=== PATIENT | female | born 1935 | race Caucasian/White ===

== ENCOUNTER 2021-07-24 09:17 | Emergency (ER) | payer MEDICARE ==
--- OUTSIDE RECORDS SUMMARY | 2021-07-24 09:21 | XMS REPORT | Continuity of Care Document ---
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 [id number] 14:24:00 Test Item Value Reference Range Interpretation Comments WHITE BLOOD CELL (test code = 6.9 K/mm3 4.5-11.0 N WBC) RED BLOOD CELL (test code = 4.32 M/mm3 3.80-5.20 N RBC) HEMOGLOBIN (test code = HGB) 13.9 gm/dL 12.0-16.0 N HEMATOCRIT (test code = HCT) 43.3 % 36.0-48.0 N MEAN CELL VOLUME (test code = 100.2 UM3 82.0-99.0 H MCV) MEAN CELL HGB (test code = MCH) 32.2 UUG 25.5-32.5 N MEAN CELL HGB CONCETRATION 32.1 gm/dL 29.0-35.5 N (test code = MCHC) RED CELL DISTRIBUTION WIDTH 11.9 % 11.5-15.0 N (test code = RDW) RED CELL DISTRIBUTION WIDTH SD 44.6 fL 34.8-50.2 N (test code = RDW-SD) PLATELET COUNT (test code = 255 K/mm3 150-400 N PLT) MEAN PLATELET VOLUME (test code 9.6 fl 7.4-10.4 N = MPV) NEUTROPHIL % (test code = NT%) 75.1 % 49.0-76.0 N IMMATURE GRANULOCYTE % (test 0.1 % 0.0-0.4 N code = IG%) LYMPHOCYTE % (test code = LY%) 16.7 % 23.0-38.0 L MONOCYTE % (test code = MO%) 6.4 % 1.0-10.0 N EOSINOPHIL % (test code = EO%) 1.3 % 1.0-5.0 N BASOPHIL % (test code = BA%) 0.4 % 0.0-1.0 N NEUTROPHIL # (test code = NT#) 5.2 K/mm3 2.4-6.3 N IMMATURE GRANULOCYTE # (test 0.01 x10 3/uL 0.00-0.07 N code = IG#) LYMPHOCYTE # (test code = LY#) 1.2 K/mm3 1.2-4.0 N MONOCYTE # (test code = MO#) 0.4 K/mm3 0.0-0.6 N EOSINOPHIL # (test code = EO#) 0.1 K/MM3 0.0-0.7 N BASOPHIL # (test code = BA#) 0.0 K/mm3 0.0-0.2 N
[2021-07-24 10:11] LABS: Hematocrit 41.6 % (36.0-45.0); Lymphocytes % 10.3 % (15.3-44.8); MPV 7.4 fL (7.6-11.3); RBC Red Blood Cell Count 4.42 M/uL (3.86-4.86)
[2021-07-24 10:31] LABS: Albumin 3.8 g/dL (3.4-5.0); Bilirubin Total 0.4 mg/dL (0.2-1.0); Potassium 3.4 mmol/L (3.5-5.1); Protein, Total 7.8 g/dL (6.4-8.2)
[2021-07-24] MEDS ORDERED: NA CHLORIDE 0.9% 500 ML ONE (10:41)
--- NOTE | 2021-07-24 12:30 | EDPHYS ---
Physician Documentation [facility] Name: Melonie Akers Age: 85 yrs Sex: Female : 1935 Arrival Date: 07/24/2021 Time: 09:19 Bed 9 Private MD: Rowdy Bai E ED Physician Nikolay Oliveira HPI: 07/24 15:26 This 85 yrs old Female presents to ER via Ambulatory with complaints of Diarrhea, kdr Weakness. 15:26 Patient states that about 3 days ago she was having diarrhea. Additionally she has not kdr had much of an appetite for the last week or so. She states that she can try to eat but then gets slightly nauseated when she does. She stated that she had some food last night but that she felt as if it just sat on her stomach all night long.. Onset: The symptoms/episode began/occurred gradually, 1 week(s) ago. Severity of symptoms: At their worst the symptoms were mild in the emergency department the symptoms are unchanged. The patient has not experienced similar symptoms in the past, but family has similar symptoms. The patient has not recently seen a physician. Historical: - Allergies: 09:34 No Known Allergies; aa5 - Home Meds: 09:34 lisinopril 10 mg Oral tab once daily [Active]; pravastatin 20 mg oral tab once daily aa5 [Active]; citalopram 10 mg tab once daily [Active]; alendronate 70 mg oral tab once wkly [Active]; - PMHx: 09:34 Hypertensive disorder; Hypercholesterolemia; Osteoporosis; aa5 - Immunization history:: Adult Immunizations unknown. - Social history:: Smoking status: Patient denies any tobacco usage or history of. ROS: 15:26 Constitutional: Negative for fever, chills, and weight loss, Eyes: Negative for injury, kdr pain, redness, and discharge, Neck: Negative for injury, pain, and swelling, Cardiovascular: Negative for chest pain, palpitations, and edema, Respiratory: Negative for shortness of breath, cough, wheezing, and pleuritic chest pain, Back: Negative for injury and pain, : Negative for injury, bleeding, discharge, and swelling, MS/Extremity: Negative for injury and deformity, Skin: Negative for injury, rash, and discoloration, Neuro: Negative for headache, weakness, numbness, tingling, and seizure activity. Psych: Negative for depression, anxiety, suicide ideation, homicidal ideation, and hallucinations, Allergy/Immunology: Negative for hives, rash, and allergies, Endocrine: Negative for neck swelling, polydipsia, polyuria, polyphagia, and marked weight changes, Hematologic/Lymphatic: Negative for swollen nodes, abnormal bleeding, and unusual bruising. 15:26 Abdomen/GI: Positive for diarrhea. Exam: 15:59 Constitutional: This is a well developed, well nourished patient who is awake, alert, kdr and in no acute distress. Head/Face: Normocephalic, atraumatic. Eyes: Pupils equal round and reactive to light, extra-ocular motions intact. Lids and lashes normal. Conjunctiva and sclera are non-icteric and not injected. Cornea within normal limits. Periorbital areas with no swelling, redness, or edema. Neck: Trachea midline, no thyromegaly or masses palpated, and no cervical lymphadenopathy. Supple, full range of motion without nuchal rigidity, or vertebral point tenderness. No Meningismus. Chest/axilla: Normal chest wall appearance and motion. Nontender with no deformity. No lesions are appreciated. Cardiovascular: Regular rate and rhythm with a normal S1 and S2. No gallops, murmurs, or rubs. Normal PMI, no JVD. No pulse deficits. Respiratory: Lungs have equal breath sounds bilaterally, clear to auscultation and percussion. No rales, rhonchi or wheezes noted. No increased work of breathing, no retractions or nasal flaring. Abdomen/GI: Soft, non-tender, with normal bowel sounds. No distension or tympany. No guarding or rebound. No evidence of tenderness throughout. Back: No spinal tenderness. No costovertebral tenderness. Full range of motion. Skin: Warm, dry with normal turgor. Normal color with no rashes, no lesions, and no evidence of cellulitis. MS/ Extremity: Pulses equal, no cyanosis. Neurovascular intact. Full, normal range of motion. Neuro: Awake and alert, GCS 15, oriented to person, place, time, and situation. Cranial nerves II-XII grossly intact. Motor strength 5/5 in all extremities. Sensory grossly intact. Cerebellar exam normal. Normal gait. Psych: Awake, alert, with orientation to person, place and time. Behavior, mood, and affect are within normal limits. Vital Signs: 09:33 BP 157 / 95; Pulse 98; Resp 16 S; Temp 98.7(TE); Pulse Ox 97% on R/A; Weight 64.86 kg aa5 (R); Height 5 ft. 1 in. (154.94 cm) (R); 09:33 Body Mass Index 27.02 (64.86 kg, 154.94 cm) aa5 MDM: 12:29 Patient medically screened. kdr 15:59 Data reviewed: vital signs, nurses notes, lab test result(s). Counseling: I had a kdr detailed discussion with the patient and/or guardian regarding: the historical points, exam findings, and any diagnostic results supporting the discharge/admit diagnosis, lab results, the need for outpatient follow up. 07/24 09:45 Order name: CBC with Diff; Complete Time: 11:54 kdr 07/24 09:45 Order name: CMP; Complete Time: 11:54 kdr 07/24 09:45 Order name: Lipase; Complete Time: 11:54 kdr 07/24 09:45 Order name: IV Saline Lock; Complete Time: 09:56 kdr 07/24 09:45 Order name: Labs collected and sent; Complete Time: 09:56 kdr Administered Medications: 10:38 Drug: NS 0.9% 500 ml Route: IV; Rate: bolus; Site: right wrist; iw 11:33 Follow up: IV Status: Completed infusion iw Disposition Summary: 07/24/21 12:29 Discharge Ordered Location: Home kdr Problem: new kdr Symptoms: have improved kdr Condition: Stable kdr Diagnosis - Weakness kdr - Poor/diminished appetite kdr Followup: kdr - With: Rowdy Bai MD - When: 48 Hours - Reason: If symptoms return, Further diagnostic work-up, Recheck today's complaints, Continuance of care, Re-evaluation by your physician Discharge Instructions: - Discharge Summary Sheet kdr - Weakness, [id number] kdr - Healthy Eating kdr Forms: - Medication Reconciliation Form kdr - Thank You Letter kdr Signatures: Dispatcher [employer] Nikolay Gamble MD MD kdr Patti Garcia RN RN iw Veronica Villatoro RN RN aa5
--- NOTE | 2021-07-24 12:30 | ER ---
Nurse's Notes [facility] Name: Melonie Akers Age: 85 yrs Sex: Female : 1935 Arrival Date: 07/24/2021 Time: 09:19 Bed 9 Private MD: Rowdy Bai E Diagnosis: Weakness;Poor/diminished appetite Presentation: 07/24 09:33 Chief complaint: Patient states: "I had diarrhea for about 3 days and I haven't been aa able to really eat anything for the last few days because it makes me nauseated and it makes me feel like the food just sits right here (points to epigastric area)". 09:33 Acuity: MARGIE 3 aa 09:33 Method Of Arrival: Ambulatory [facility] 09:33 Coronavirus screen: diarrhea, nausea. Ebola Screen: No symptoms or risks identified at [facility] this time. Initial Sepsis Screen: Does the patient meet any 2 criteria? No. Patient's initial sepsis screen is negative. Does the patient have a suspected source of infection? No. Patient's initial sepsis screen is negative. Risk Assessment: Do you want to hurt yourself or someone else? Patient reports no desire to harm self or others. Onset of symptoms was July 2021. Historical: - Allergies: 09:34 No Known Allergies; aa5 - Home Meds: 09:34 lisinopril 10 mg Oral tab once daily [Active]; pravastatin 20 mg oral tab once daily aa5 [Active]; citalopram 10 mg tab once daily [Active]; alendronate 70 mg oral tab once wkly [Active]; - PMHx: 09:34 Hypertensive disorder; Hypercholesterolemia; Osteoporosis; aa5 - Immunization history:: Adult Immunizations unknown. - Social history:: Smoking status: Patient denies any tobacco usage or history of. Screenin:59 Abuse screen: Denies threats or abuse. Denies injuries from another. Nutritional iw screening: No deficits noted. Tuberculosis screening: No symptoms or risk factors identified. Fall Risk IV access (20 points). Assessment: 10:58 General: Appears in no apparent distress. Behavior is calm, cooperative. Pain: Denies iw pain. Neuro: Level of Consciousness is awake, alert, obeys commands, Oriented to person, place, time, situation. Respiratory: Respiratory effort is even, unlabored, Respiratory pattern is regular, symmetrical. GI: Abdomen is non-distended, Reports diarrhea. Derm: Skin is intact, is healthy with good turgor. Musculoskeletal: Range of motion: intact in all extremities. Vital Signs: 09:33 BP 157 / 95; Pulse 98; Resp 16 S; Temp 98.7(TE); Pulse Ox 97% on R/A; Weight 64.86 kg aa5 (R); Height 5 ft. 1 in. (154.94 cm) (R); 09:33 Body Mass Index 27.02 (64.86 kg, 154.94 cm) aa5 ED Course: 09:19 Patient arrived in ED. as 09:20 Nikolay Oliveira MD is Attending Physician. kdr 09:20 Rowdy Bai MD is Private Physician. as 09:33 Arm band placed on. aa5 09:34 Triage completed. aa5 09:56 Initial lab(s) drawn, by mo, sent to lab. Inserted saline lock: 20 gauge in right em1 forearm, using aseptic technique. Blood collected. 10:10 Patti Garcia, RN is Primary Nurse. iw 12:27 Rowdy Bai MD is Referral Physician. kdr 12:46 Patient has correct armband on for positive identification. iw 12:46 No provider procedures requiring assistance completed. IV discontinued, intact, iw bleeding controlled, No redness/swelling at site. Pressure dressing applied. Administered Medications: 10:38 Drug: NS 0.9% 500 ml Route: IV; Rate: bolus; Site: right wrist; iw 11:33 Follow up: IV Status: Completed infusion iw Medication: 12:46 VIS not applicable for this client. iw Outcome: 12:29 Discharge ordered by . kdr 12:46 Discharged to home ambulatory, with family. iw 12:46 Condition: good 12:46 Discharge instructions given to patient, Instructed on discharge instructions, follow up and referral plans. Demonstrated understanding of instructions, follow-up care. 12:46 Patient left the ED. iw Signatures: Nikolay Oliveira MD MD kdr Ban Ramírez as Patti Garcia, RN PRASHANT Stepan Ramírezic em1 Veronica Villatoro RN RN [facility]
[2021-07-24 12:57] VITALS: BP 157/95; TEMP 98.7; O2SAT 97
== END 2021-07-24 12:46 | disposition home or self-care (01) ==
LOC: ER 09:17
DX: R53.1 Weakness (principal); R63.0 Anorexia; R19.7 Diarrhea, unspecified; E78.00 Pure hypercholesterolemia, unspecified; I10 Essential (primary) hypertension; Z68.27 Body mass index [BMI] 27.0-27.9, adult
CPT/HCPCS: 85025; 36415; 83690; 80053; 96360; 99283; J7040

== ENCOUNTER 2024-02-10 09:10 | Emergency (ER) | payer MEDICARE ==
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
--- NOTE | 2024-02-10 10:04 | ER ---
Nurse's Notes [facility] Name: Melonie Akers Age: 88 yrs Sex: Female : 1935 Arrival Date: 02/10/2024 Time: 09:10 Bed IW1 Private MD: Diagnosis: Encounter for general adult medical examination without abnormal findings Presentation: 02/09 09:54 Chief complaint: Patient states: Sudden onset of fatigue that began at 1030. Pt reports ss she feels much better now, but wants to get it checked out to be sure she is ok. Coronavirus screen: Client denies travel out of the [place] in the last 14 days. Ebola Screen: Patient denies exposure to infectious person. Patient denies travel to an Ebola-affected area in the 21 days before illness onset. Initial Sepsis Screen: Does the patient meet any 2 criteria? No. Patient's initial sepsis screen is negative. Does the patient have a suspected source of infection? No. Patient's initial sepsis screen is negative. Risk Assessment: Do you want to hurt yourself or someone else? Patient reports no desire to harm self or others. Onset of symptoms was February 10, 2024. 09:54 Method Of Arrival: Ambulatory ss 09:54 Acuity: MARGIE 3 ss Historical: - Allergies: 09:57 No Known Allergies; ss - PMHx: 09:57 Hypercholesterolemia; Hypertensive disorder; Osteoporosis; ss - Immunization history:: Adult Immunizations up to date. - Infectious Disease History:: Denies. - Social history:: Smoking status: Patient denies any tobacco usage or history of. Screenin:23 [facility] ED Fall Risk Assessment (Adult) History of falling in the last 3 months, tm6 including since admission No falls in past 3 months (0 pts) Confusion or Disorientation No (0 pts) Intoxicated or Sedated No (0 pts) Impaired Gait No (0 pts) Mobility Assist Device Used No (0 pt) Altered Elimination No (0 pt) Score/Fall Risk Level 0 - 2 = Low Risk Oriented to surroundings, Maintained a safe environment, Educated pt \T\ family on fall prevention, incl call for assistance when getting out of bed. Abuse screen: Denies threats or abuse. Denies injuries from another. Nutritional screening: No deficits noted. Tuberculosis screening: No symptoms or risk factors identified. Assessment: 10:04 General: Appears in no apparent distress. comfortable, Behavior is calm, cooperative. ss General:. Pain: Denies pain. Neuro: Level of Consciousness is awake, alert, obeys commands, Oriented to person, place, time, situation. Neuro: Oriented to Franchise Manager are equal bilaterally Moves all extremities. Full function Gait is steady, Speech is normal, Facial symmetry appears normal, Pupils are PERRLA, Intact. Respiratory: Airway is patent Respiratory effort is even, unlabored, Respiratory pattern is regular, symmetrical, Denies cough, shortness of breath. GI: Patient currently denies diarrhea, nausea, vomiting. Derm: Skin is intact, is healthy with good turgor, Skin is dry, Skin is pink, warm \T\ dry. normal. 10:05 Reassessment: Pt reported sudden onset of fatigue after taking a shower, doing her hair ss and eating breakfast. Pt reports she had to lay there for a moment, but feels better now. Vital Signs: 09:54 BP 118 / 81; Pulse 93; Resp 16; Temp 97.8(O); Pulse Ox 100% on R/A; Weight 60.78 kg; ss Height 5 ft. 2 in. ; Pain 0/10; 09:54 Body Mass Index 24.51 (60.78 kg, 157.48 cm) ss 09:54 Pain Scale: Adult ss ED Course: 09:13 Patient arrived in ED. im 09:13 Mindy Lee PA-C is PHCP. sb4 09:13 Mitch Hughes MD is Attending Physician. sb4 09:57 Triage completed. ss 09:57 Arm band placed on right wrist. ss 10:04 Jamila Qiu, PRASHANT is Primary Nurse. ss 10:23 Patient has correct armband on for positive identification. Provided Education on: tm6 follow up with PCP or return to ER if needed. 10:23 No provider procedures requiring assistance completed. Patient did not have IV access tm6 during this emergency room visit. Administered Medications: No medications were administered Medication: 10:04 VIS not applicable for this client. ss Outcome: 10:04 Discharge ordered by . sb4 10:23 Discharged to home ambulatory, with family, tm6 10:23 Condition: stable 10:23 Discharge instructions given to patient, family, Instructed on discharge instructions, follow up and referral plans. 10:23 Patient left the ED. tm6 Signatures: Jamila Qiu, RN RN ss Mindy Lee, BAM PAJuliano sb4 Felisa Cavazos Tawney, RN RN tm6
--- NOTE | 2024-02-10 10:04 | EDPHYS ---
Physician Documentation [facility] Name: Melonie Akers Age: 88 yrs Sex: Female : 1935 Arrival Date: 02/10/2024 Time: 09:10 Bed IW1 Private MD: ED Physician Mitch Hughes HPI: 02/09 10:51 This 88 yrs old Female presents to ER via Ambulatory with complaints of Weakness. sb4 10:51 Patient states that she was having a normal day when she all of a sudden had a wave of sb4 fatigue wash over her where she had to sit down momentarily and was feeling nauseated. She states that she had her daughter take her to the ED but her symptoms resolved in route. She states that she feels back to normal right now and does not wish for any more testing. Just wanted to be examined. She denies any chest pain, shortness of breath, dizziness, urinary symptoms, nausea, vomiting, diarrhea, fever, chills. Historical: - Allergies: 09:57 No Known Allergies; ss - PMHx: 09:57 Hypercholesterolemia; Hypertensive disorder; Osteoporosis; ss - Immunization history:: Adult Immunizations up to date. - Infectious Disease History:: Denies. - Social history:: Smoking status: Patient denies any tobacco usage or history of. ROS: 10:51 Constitutional: Negative for fever, chills, and weight loss, sb4 10:51 All other systems are negative, Exam: 10:51 Constitutional: This is a well developed, well nourished patient who is awake, alert, sb4 and in no acute distress. Head/Face: Normocephalic, atraumatic. Eyes: Extra-ocular motions intact. Periorbital areas with no swelling, redness, or edema. ENT: Mucous membranes moist. Cardiovascular: Regular rate and rhythm with a normal S1 and S2. Respiratory: No increased work of breathing, no retractions or nasal flaring. Abdomen/GI: Soft, non-tender, no distension. Skin: Warm, dry with normal turgor. Normal color with no rashes, no lesions, and no evidence of cellulitis. Vital Signs: 09:54 BP 118 / 81; Pulse 93; Resp 16; Temp 97.8(O); Pulse Ox 100% on R/A; Weight 60.78 kg; ss Height 5 ft. 2 in. ; Pain 0/10; 09:54 Body Mass Index 24.51 (60.78 kg, 157.48 cm) 09:54 Pain Scale: Adult ss MDM: 09:58 Medical Screening Exam initiated sb4 10:52 Data reviewed: vital signs, nurses notes, and as a result, I will discharge patient. sb4 Test considered but Not performed: Labs: Patient declined. Historians other than the Patient: Daughter/Son: Daughter. Care significantly affected by the following chronic conditions: Hypertension. Counseling: I had a detailed discussion with the patient and/or guardian regarding the historical points, exam findings, and any diagnostic results supporting the discharge/admit diagnosis, the need for outpatient follow up, for definitive care, to return to the emergency department if symptoms worsen or persist or if there are any questions or concerns that arise at home. Administered Medications: No medications were administered Disposition: 11:56 Co-signature as Attending Physician, Mitch Hughes MD I reviewed the patient's care rn provided by the Advanced Practice Provider and agree with the diagnosis and treatment plan. Disposition Summary: 02/10/24 10:04 Discharge Ordered Notes: Location: Home sb4 Problem: new sb4 Symptoms: are resolved sb4 Condition: Stable sb4 Diagnosis - Encounter for general adult medical examination without abnormal findings sb4 Followup: sb4 - With: Emergency Department - When: As needed - Reason: Trouble breathing, Worsening of condition Forms: - Medication Reconciliation Form sb4 - Antibiotic Education sb4 - Prescription Opioid Use sb4 - Patient Portal Instructions sb4 - Leadership Thank You Letter sb4 Signatures: Mitch Hughes MD MD rn Blanchard, Shelby, RN RN ss Brown, Sophia, PA-C PA-C sb4 Corrections: (The following items were deleted from the chart) 10:52 10:51 Patient states that she was having a normal day when she all of a sudden had a sb4 wave of fatigue wash over her where she had to sit down momentarily and was feeling nauseated. She states that she had her daughter take her to the ED but her symptoms resolved in route. She states that she feels back to normal right now and does not wish for any more testing. Just wanted to be examined. sb4
[2024-02-10 10:44] VITALS: BP 118/81; TEMP 97.8; O2SAT 100
== END 2024-02-10 10:23 | disposition home or self-care (01) ==
LOC: ER 09:10
DX: Z71.1 Person with feared health complaint in whom no diagnosis is made (principal)
CPT/HCPCS: 99282